=== PATIENT | male | born 1990 | race Two or more races ===

== ENCOUNTER 2021-01-05 02:54 | Emergency (ER) | payer OTHER ==
[2021-01-05 03:07] VITALS: BP 159/89
--- NOTE | 2021-01-05 03:08 | ED Physician Documentation ---
PD HPI SKIN - Stated complaint Stated Complaint: HIVES - Chief complaint Chief Complaint: Allergic Rx - History obtained from History obtained from: Patient - History of Present Illness Timing - onset: How many hours ago (9), Today Timing - duration: Hours (9) Timing - details: Abrupt onset (onset soon after eating of diffuse itching and progressive hives. No dyspnea, oral swelling, abd cramps, diarrhea, nor lightheaded. Tried OTC hydrocortisone without improvement.), Still present Location: Bodywide Quality / character: Itchy, Burning Improved by: No: Steroid cream Associated symptoms: No: Fever, Myalgias, N/V/D Contributing factors: Exposed to food (different food for dinner (nauruan food wrapped in grapeleaves).). No: Exposed to medication Similar symptoms before: Has not had sx before Review of Systems Constitutional: denies: Fever Nose: denies: Rhinorrhea / runny nose, Congestion Throat: denies: Sore throat Respiratory: denies: Dyspnea, Cough GI: denies: Nausea, Vomiting, Diarrhea Skin: reports: Rash Neurologic: denies: Near syncope PD PAST MEDICAL HISTORY - Past Medical History Past Medical History: No - Present Medications Home Medications: Ambulatory Orders Medication Instructions Recorded Confirmed Cetirizine [ZyrTEC] 10 mg PO BID #10 tablet 01/05/21 dexAMETHasone [Decadron] 4 mg PO DAILY #5 tablet 01/05/21 - Allergies Allergies/Adverse Reactions: Allergies Allergy/AdvReac Type Severity Reaction Status Date / Time Canned rice wrapped in grape Allergy Hives Uncoded 01/05/21 04:01 leaves PD ED PE NORMAL - Vitals Vital signs reviewed: Yes - General General: Alert and oriented X 3, No acute distress (does seem uncomfortable due to the diffuse itching. ), Well developed/nourished - HEENT HEENT: Pharynx benign - Neck Neck: Supple, no meningeal sign, No adenopathy - Cardiac Cardiac: RRR, No murmur - Respiratory Respiratory: Clear bilaterally - Derm Derm: Normal color, Warm and dry, Other (diffuse blotchy hives without vesicles. ) Results - Vitals Vitals: Vital Signs - 24 hr 01/05/21 01/05/21 02:59 04:02 Temperature 36.9 C 36.9 C Heart Rate 108 H 108 H Respiratory 22 22 Rate Blood Pressure 159/89 H 159/89 H O2 Saturation 98 98 Oxygen O2 Source Room air PD MEDICAL DECISION MAKING - ED course Complexity details: considered differential (presume food allergy as timing onset soon after new food. ), d/w patient Departure - Departure Disposition: 01 Home, Self Care Clinical Impression: Acute urticaria Condition: Stable Record reviewed to determine appropriate education?: Yes Instructions: ED Allergic Reaction General Other Prescriptions: dexAMETHasone [Decadron] 4 mg PO DAILY #5 tablet Cetirizine [ZyrTEC] 10 mg PO BID #10 tablet Comments: Allergic reaction such as this and can can sometimes linger for several days. As such we will continue medications for it for several days more. Use the Benadryl 1 to 2 tablets every 6 hours if needed for itching and rash in the short-term. Decadron steroid and cetirizine long-acting antihistamines as directed for the next 5 days. Add the Benadryl if needed. Recheck if not improved well over the next couple of days and resolved by 3 to 5 days. Discharge Date/Time: 01/05/21 04:09
[2021-01-05] MEDS ORDERED: CHERRY SYRUP 10 ML UDC PO ONE (03:30)
[2021-01-05] MEDS ORDERED: diphenhydrAMINE INJ 50 MG/ML VIAL IM STA (03:30)
[2021-01-05] MEDS ORDERED: FAMOTIDINE 20 MG TABLET PO STA (03:30)
[2021-01-05] MEDS ORDERED: CETIRIZINE 10 MG TABLET PO STA (03:30)
[2021-01-05] MEDS ORDERED: DEXAMETHASONE 10 MG/ML VIAL PO STA (03:30)
== END 2021-01-05 04:09 | disposition home or self-care (01) ==
LOC: ED 02:54
DX: L50.9 Urticaria, unspecified (principal)
CPT/HCPCS: 96372; 99283; 99284; A9270; J1200